=== PATIENT | male | born 1970 | race Caucasian/White ===

== ENCOUNTER 2017-08-27 11:37 | Inpatient (IN) | payer OTHER ==
[~2017-08-27] VITALS: Ht 193 cm; Wt 145.1 kg
--- NOTE | ~2017-08-27 | HC ---
[facility] [place] [address] CONSULTATION Name: AUGUST BANEGAS Room #: 416-P [facility] IN M.R.#: [id number] Admission: 08/27/17 Attend Phys: August Irby MD Discharge: Date of : 66 Report #: [id number] THIS REPORT FOR: //name// CC: August Guzman CHIEF COMPLAINT: Right knee pain. HISTORY OF PRESENT ILLNESS: This 46-year-old gentleman presents to the Emergency Room after we talked over the phone regarding increasing right knee pain. He underwent right knee arthroscopy on 08/25. The findings were rather minimal with evidence of chondromalacia and meniscus tearing which were debrided. There was no evidence of any other significant major pathology. 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 He apparently had no significant problems at that point, but then developed increasing right knee pain over the subsequent hours. We spoke over the phone, and I was concerned about the possibility of either phlebitis or hemarthrosis or infection and therefore suggested that we visit the Emergency Department. He denies any other subjective symptoms. He states he is not running a fever. He has had no chills or sweats. He states he has no other systemic complaints or symptoms. PREVIOUS MEDICAL HISTORY: Noncontributory. MEDICATIONS: He has no significant chronic medications. PHYSICAL EXAMINATION: GENERAL: He is a stocky, but appears otherwise healthy. He is alert and afebrile. He is, however, quite uncomfortable with regard to the right knee, complaining of some generalized discomfort about the knee and some pain in the popliteal space as well as some vague discomfort in the calf. CARDIAC: Normal. LUNGS: Clear. ABDOMEN: Soft and nontender. EXTREMITIES: The upper extremities are normal. The back is normal. The pelvis is normal. The left lower extremity reveals good movement at the hip, knee and ankle without discomfort. There is no swelling or bruising or vascular changes. The right lower extremity is notable for rather marked subjective discomfort about the right knee; however, the knee looked subjectively fairly normal. There are well-healed arthroscopy punctures which appeared to be dry and without redness or warmth. The knee itself demonstrates a very minimal knee effusion. There is no redness or warmth. He is uncomfortable with range of motion in a rather diffuse nonspecific fashion. There is no obvious deformity. There is no crepitus. The lower leg, foot and ankle demonstrate normal contour and alignment. He has some tenderness in the calf, but I do not feel clear evidence of a DVT. He is somewhat large, making evaluation difficult. In [address] [address] CONSULTATION Name: AUGUST BANEGAS Room #: 416-P [facility] IN M.R.#: [id number] Admission: 08/27/17 Attend Phys: August Irby MD Discharge: Date of : 66 Report #: [id number] general, however, the findings are most consistent with mild postoperative knee inflammation and probably without infection or DVT. In the Emergency Room, laboratory evaluation reveals an elevated white count of 13,800, but he remains afebrile. An ultrasound exam was performed which revealed no evidence of DVT in the femoral or popliteal region nor any evidence of other abnormalities in the upper calf. We have discussed these issues at some length. Although the objective findings would not suggest DVT nor infection, his level of subjective discomfort is certainly significant. Given this, we have elected to go ahead with hospital admission and hospitalist consultation. We will begin with simple pain management with oral or IV analgesics and rest, elevation, ice, pending his progress. I would consider knee aspiration for culture, even though at this point, there is really very minimal joint fluid and no other significant clinical evidence of infection. His understands and agrees with observation at least over the coming 24 hours, with advancing care as clinically indicated. <ELECTRONICALLY SIGNED> By: August Irby MD 08/28/17 0948 [id number] August Irby MD /nt
--- NOTE | ~2017-08-27 | H ---
[facility] [place] [address] HISTORY AND PHYSICAL Name: HORTENCIACHRIS LEO Room #: 416-P [facility] IN M.R.#: [id number] Admission: 08/27/17 Attend Phys: Chris Irby MD Discharge: Date of : 66 Report #: [id number] THIS REPORT FOR: //name// CC: Chris Guzman DATE OF SERVICE: 08/27/2017 REASON FOR ADMISSION: Right knee pain. REASON FOR PRESENTATION: Right knee pain. HISTORY OF PRESENT ILLNESS: This is a 46-year-old healthy young man with remote history of left meniscal tear repair about a month ago. He just had the right meniscal over the right knee operated on with right meniscal repair this past Monday. The patient's hospital course was uneventful and he was discharged without any problems with pain control regimen. The patient came back with inability to ambulate, significant pain on the right side. He had some issues with minor swelling. No fever or chills. Because of his inability to ambulate, they consulted with the orthopedic surgery. Ultrasound of the lower extremities was negative for a DVT. The patient opted for an inpatient management of his pain as he is not able to handle any of his daily activities with significant limitation of his mobility. PAST MEDICAL HISTORY: 1. Status post left meniscal repair. 2. Status post recent right meniscal repair. 3. Hernia repair. FAMILY HISTORY: Mom with Alzheimer's. SOCIAL HISTORY: No drug or alcohol abuse. 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 REVIEW OF SYSTEMS: GENERAL: No fever or chills. CARDIOVASCULAR: No chest pain or palpitation. PULMONARY: No cough or hemoptysis. GASTROINTESTINAL: No nausea or vomiting. MUSCULOSKELETAL: As per the history of present illness. NEUROLOGICAL: No numbness. No weakness. SKIN: No rash or ulcerations. ALLERGIES: PENICILLIN. PHYSICAL EXAMINATION: [facility] [address] [place] [address] HISTORY AND PHYSICAL Name: BASSAMCHRIS Room #: 416-P [facility] IN .R.#: [id number] Admission: 08/27/17 Attend Phys: Chris Irby MD Discharge: Date of : 66 Report #: [id number] GENERAL: He is alert, oriented, in no apparent distress. VITAL SIGNS: Blood pressure 150/85, pulse rate 74, temperature 37.1. HEAD AND NECK: No jugular venous distention, no bruit, no thyromegaly. CHEST: Clear to auscultation bilaterally. CARDIOVASCULAR: Regular with no rub detected. ABDOMEN: Soft, nontender with no hepatosplenomegaly. EXTREMITIES: Lower extremities, no edema. There is a significant limitation of the range of motion around the right knee. Scars from the recent surgery. No evidence of neurovascular compromise. LABORATORY DATA: Reviewed. Mildly elevated white blood cell count of 13.8. Glucose is mildly elevated at 29, otherwise negative. Ultrasound negative for DVT. ASSESSMENT, IMPRESSION AND PLAN: 1. Status post recent right knee meniscal repair. 2. Mild leukocytosis. 3. Admission. 4. Pain control regimen. 5. Orthopedic consultation. 6. PT, OT to evaluate. 7. Ultimately, we will need to bridge to an oral pain control regimen and discharge home on it. 8. Deep vein thrombosis was ruled out. We will place on usual routine deep vein thrombosis prophylaxis. 9. Gastrointestinal prophylaxis. 10. Awaiting further input from the orthopedic team. By: [id number] [id number] Chalo Mcneal MD /nt
[2017-08-27 11:40] VITALS: BP 140/93
[2017-08-27 12:42] LABS: ABSOLUTE NEUTROPHILS 11.3 thou/uL (1.4-8.2); BASOPHILS 0.4 % (0.0-2.0); HEMOGLOBIN 15.3 gm/dL (14.0-18.0); LYMPHOCYTES 11.2 % (24.0-44.0); MCHC 34.7 g/dL (28.0-37.0); MCV 83.5 fL (80.0-100.0); MONOCYTES 6.4 % (1.0-8.0); PLATELET COUNT 291 thou/uL (150-400); RBC 5.27 mil/uL (4.50-6.00); RDW 13.7 % (10.5-14.5); WBC 13.8 thou/uL (4.0-11.0)
[2017-08-27 12:43] LABS: MANUAL DIFF NO
[2017-08-27 13:34] LABS: CALCIUM 9.5 mg/dL (8.5-10.1); CREATININE 1.3 mg/dL (0.7-1.3); POTASSIUM 4.3 mmol/L (3.5-5.1)
[2017-08-27 14:05] VITALS: BP 148/79
[2017-08-27 14:23] VITALS: BP 156/85
[2017-08-27 15:00] VITALS: BP 180/99
[2017-08-27 16:45] VITALS: BP 143/87
[2017-08-27 21:33] VITALS: BP 138/85
[2017-08-28 06:28] VITALS: BP 124/78
[2017-08-28 06:30] LABS: HEMATOCRIT 41.8 % (42.0-52.0); HEMOGLOBIN 14.2 gm/dL (14.0-18.0); MCH 29.1 pg (26.0-34.0); MCHC 33.9 g/dL (28.0-37.0); MCV 85.8 fL (80.0-100.0); RBC 4.88 mil/uL (4.50-6.00); RDW 13.6 % (10.5-14.5); WBC 10.2 thou/uL (4.0-11.0)
[2017-08-28 06:53] LABS: ALBUMIN 3.4 g/dL (3.4-5.0); CALCIUM 8.8 mg/dL (8.5-10.1); CREATININE 1.4 mg/dL (0.7-1.3); POTASSIUM 4.2 mmol/L (3.5-5.1); TOTAL BILIRUBIN 0.4 mg/dL (<0.1-1.0); TOTAL PROTEIN 6.7 g/dL (6.4-8.2)
[2017-08-28 09:45] VITALS: BP 117/64
[2017-08-28 12:59] VITALS: BP 117/64
== END 2017-08-28 15:04 | disposition home or self-care (01) | DRG 554 ==
LOC: ER 11:37 → EROBS 13:56 → 4N 14:38
PROVIDERS: Hospitalist; Physician Assistant
PROC: 5A09357 Assistance with Respiratory Ventilation, Less than 24 Consecutive Hours, Continuous Positive Airway Pressure (ICD-10-PCS; principal; 2017-08-27)
DX: M25.061 Hemarthrosis, right knee (principal); D72.829 Elevated white blood cell count, unspecified; Z81.8 Family history of other mental and behavioral disorders; Z88.0 Allergy status to penicillin
CPT/HCPCS: 10790